=== PATIENT | male | born 1990 | race Caucasian/White ===

== ENCOUNTER 2024-11-27 11:33 | Emergency (ER) | payer OTHER, SELFPAY ==
[2024-11-27 11:42] VITALS: BP 144/106
[2024-11-27 12:07] LABS: % Basophils 0.3 % (0-2); % Eosinophils 3.1 % (0-6); % Immature Granulocytes 0.3 % (0-0.5); % Lymphocytes 16.7 % (20.5-51.1); % Monocytes 10.4 % (1.7-9.3); % Neutrophils 69.2 % (42.2-75.2); Absolute Eosinophils 0.4 10^3/uL (0-0.7); Absolute Lymphocytes 1.9 10^3/uL (1.2-3.4); Absolute Monocytes 1.2 10^3/uL (0.1-0.6); Hematocrit 44.4 % (39.0-52.0); Hemoglobin 15.5 g/dL (13.0-18.0); Mean Corp Hgb Conc. 34.9 g/dL (33.0-37.0); Mean Corpuscular Hgb 30.7 pg (27.0-31.0); Mean Corpuscular Volume 87.9 fL (80.0-94.0); Mean Platelet Volume 9.6 fL (7.4-10.4); Nucleated Red Blood Cells % 0 % (-); Platelet Count 256 10^3/uL (130-400); Red Blood Cell Count 5.05 10^6/uL (4.70-6.10); Red Cell Dist. Width 12.3 % (11.5-14.5); White Blood Cell Count 11.6 10^3/uL (4.8-10.8)
[2024-11-27 12:25] LABS: COVID-19 Antigen Negative (Negative)
[2024-11-27 12:43] LABS: Troponin I < 0.012 ng/ml
[2024-11-27 12:51] LABS: ALT (SGPT) 63 U/L (0-50); AST (SGOT) 36 U/L (17-59); Albumin 4.8 g/dl (3.5-5.0); Alkaline Phosphatase 74 U/L (38-126); Blood Urea Nitrogen 14 mg/dl (9-20); Calcium 9.8 mg/dl (8.4-10.2); Carbon Dioxide 26 mmol/L (22-30); Chloride 103 mmol/L (98-107); Glucose 88 mg/dl (70-99); Potassium 4.3 mmol/L (3.5-5.1); Sodium 138 mmol/L (135-145); Total Bilirubin 1.4 mg/dl (0.2-1.3); eGFR > 60.00
[2024-11-27 13:24] VITALS: BP 132/88
[2024-11-27 14:00] VITALS: BP 136/88
[2024-11-27 14:40] VITALS: BP 128/85
[2024-11-27 15:00] VITALS: BP 140/98
--- NOTE | 2024-11-27 15:29 | ED.GENMED ---
History of Present Illness
General
Chief Complaint: Fatigue
Source: patient
Exam Limitations: none
Time Seen by Provider: 11/27/24 14:19
Nursing documentation reviewed up to this point in time: agreed with
History of Present Illness
History of Present Illness:
Note:
CHIEF COMPLAINT(S)
Headache and dizziness.
HISTORY OF PRESENT ILLNESS
The patient is a 34-year-old male presenting with headache and dizziness. The symptoms began several days ago but have worsened since yesterday. Initially, the patient experienced a sensation of heaviness in the chest and breathing difficulties.
There was a transient episode of left foot numbness, which resolved after approximately one and a half hours. The headache is localized to the side of the head. The patient reports a sensation described as 'cloudy' and difficulty articulating
thoughts. There is no chest pain currently but a sore throat is noted, especially when swallowing. The patient denies any spinning sensation but experiences dizziness when sitting up. Aspirin provided short-term relief for the headache. The patient
notes a history of dental infections requiring antibiotic treatment in the past, but he is not currently on antibiotics. There is a tightness sensation in the jaw.
SOCIAL HISTORY
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
ALLERGIES
Denies any known medication allergies.
MEDICATIONS
The patient has taken aspirin for the headache.
REVIEW OF SYSTEMS
- Neurological: Headache, 'cloudy' feeling, difficulty in articulation.
- Sensory: Transient numbness in the left foot.
- Otorhinolaryngological: Sore throat, difficulty swallowing.
- Cardiovascular: Brief past sensation of chest heaviness.
PHYSICAL EXAM
Nursing notes reviewed and vital signs reviewed.
Physical Exam
General: no apparent distress, not acutely ill
Neck: supple. no meningeal signs. normal posterior pharynx
Heart: s1/s2 regular rate and rhythm, no murmur. equal radial
pulses.
HEENT: Pupils equal round reactive to light, EOMI, poor dentition, dental caries right lower molars
Lungs: no acute respiratory distress. clear bilaterally
Abdomen: normal bowel sounds. not tender. no CVAT
Neuro: alert and oriented. no focal neurological deficits cranial nerves II through XII intact
Skin: no rash
Psychiatric: well kept. interactive and cooperative
Extremities: no edema. no calf tenderness. negative homans. good distal pulses
PLAN
-
- Administer treatment for the headache considering possible migraine etiology.
- Prescribe antibiotics for a suspected dental infection.
- Arrange for dental follow-up to address oral health concerns.
DIFFERENTIAL DIAGNOSIS
The Differential Diagnosis includes, in no particular order and is not limited to:
1. Migraine headache
2. Tension-type headache
3. Sinusitis
4. Dental infection
5. Mononucleosis
6. Dehydration
7. Upper respiratory tract infection
8. Viral pharyngitis
9. Temporomandibular joint disorder
10. Neurological disorder (e.g., transient ischemic attack)
CARE-UPDATE
11/27/24 - 15:48
CT head results are normal. Mild acetosis noted. Dental care is seen impacting right lower molars. Patient reports feeling better and expresses the desire to be discharged. Mosicellin prescribed for the dental infection. No suspicion of intracranial
hemorrhage, TIA, pneumonia, sepsis, or Lyme disease. Oxycelin is being used to manage the dental infection. The patient has been instructed to follow up with both the dentist and primary care provider. Return precautions have been provided.
Disposition:
SUMMARY OF ENCOUNTER
The patient presented to the emergency department with headache and dizziness that began several days ago and worsened recently. Initial symptoms included chest heaviness and transient numbness in the left foot. The headache was also associated with
a cloudy feeling and difficulty articulating thoughts. A sore throat and jaw tightness were noted as well. The clinical approach involved ruling out serious neurological conditions, dental infections, and other causes like migraines and upper
respiratory infections. Patient declined treatment for his headache.
DISPOSITION
The patient was discharged home with instructions for follow-up care with their dentist and primary care provider.
PLAN
The plan included addressing the headache considering a possible migraine and prescribing antibiotics for the suspected dental infection.
MEDICATION RECONCILIATION
The patient was prescribed amoxicillin for the dental infection.
MEDICAL DECISION MAKING
1. Number & Complexity of Problems: The patients primary concerns were a headache and dizziness with a suspected underlying dental infection.
2. Data Reviewed: My independent review of labs and imaging reported normal head CT results. The diagnosis was supported by the absence of intracranial hemorrhage and normal vital signs.
3. Risk: Consideration of admission was made but outpatient management was deemed appropriate based on a reassuring work-up, symptom control, and patient�s stability.
PATHOLOGIES TO CONSIDER
Stroke, Transient Ischemic Attack, Subarachnoid Hemorrhage, Dental Abscess, Upper Respiratory Infection, Migraine.
Past History
Past History
ED Past Medical History: None
ED Past Surgical History: None
Social History
Tobacco: Former smoker
Alcohol: Occasional
Personal: Single
Living: with family
Employment: Employed
Family History
Family History: Other (Noncontributory)
Phy Exam
Physical Exam
Physical Exam:
.
Course
Orders/Labs/Results
Orders:
Orders
11/27/24 11:35
Electrocardiogram (*1) Urgent
Reason for Study: Chest Pain
EKG- Treatment ONCE
11/27/24 11:56
COVID-19 Antigen Urgent
Source: Nasal Swab
Complete Blood Count/With Diff Urgent
Comprehensive Metabolic Panel Urgent
Troponin I Urgent
Influenza A+B Rapid Molecular Urgent
MIYA Source: Nasal Swab
Specimen Description:
11/27/24 13:27
CT Head W/o Iv Contrast Urgent
Comment:
Reason For Exam: headache, dizziness
11/27/24 15:30
Rapid Strep Group A Urgent
MIYA Source: Throat/Pharynx
Specimen Description:
Date Specimen was Collected: 11/27/24
Time Specimen was Collected: 15:33
Amoxicillin [Amoxil] 500 mg PO NOW STA
Abnormal Lab Results
11/27/24
11:56
WBC 11.6 H 10^3/uL
(4.8-10.8)
Absolute Neuts (auto) 8.0 H 10^3/uL
(1.4-6.5)
Absolute Monos (auto) 1.2 H 10^3/uL
(0.1-0.6)
Lymphocytes % 16.7 L %
(20.5-51.1)
Monocytes % 10.4 H %
(1.7-9.3)
Total Bilirubin 1.4 H mg/dl
(0.2-1.3)
ALT 63 H U/L
(0-50)
11/27/24 11:56
11/27/24 11:56
Vital Signs
Initial and Last Documented VS:
Initial Vital Signs
Temp Pulse Resp BP Pulse Ox
98.0 F 101 16 144/106 97
11/27/24 11:42 11/27/24 11:42 11/27/24 11:42 11/27/24 11:42 11/27/24 11:42
Last Documented Vital Signs
Temp Pulse Resp BP Pulse Ox
98.0 F 93 16 140/98 98
11/27/24 11:42 11/27/24 15:30 11/27/24 15:30 11/27/24 15:00 11/27/24 15:30
*Pulse Oximetry
SaO2: 98
Oxygen Mode of Delivery: Room air
Patient hypoxic: no
*EKG
Interpreted by ED Provider?: Yes
EKG Intrepretation Date: 11/27/24
EKG Intrepretation Time: 11:40
Interpretation: normal
Comparison EKG: no comparison EKG present
Heart Rate: 81
Rate: normal
Rhythm: sinus
[place]: normal axis
Interval: normal interval and third degree heart block
QRS Pattern: normal QRS
Ischemia: no ischemia
*Critical Care Note
Total Time (30-74mins, 75-104mins- exclusive of procedures): Not Applicable
ED Attending Note
-
Portions of this chart may have been created with voice recognition software.� Occasional wrong word or��sound alike� substitutions may have occurred due to the inherent limitations of voice recognition software.
Discharge Plan
Departure
Patient Disposition: Home (Routine Discharge)
Date of Disposition: 11/27/24
Time of Disposition: 15:30
Patient with high blood pressure during this ER visit?: Yes
Condition: Good
Discharge Problem:
Headache, Dental infection
Instructions: Headache in adults - ED discharge instructions, Dental pain - ED discharge instructions, BLOOD PRESSURE
Prescriptions:
New
amoxicillin 500 mg capsule
500 mg PO TID Qty: 30 0RF
No Action
amoxicillin 500 MG capsule
500 mg PO TID Qty: 30 0RF
Referrals:
Sandra Slade MD [Family Provider, Family Practice] - Call in 1-3 days for appt
Activity Restrictions/Additional Instructions:
Follow up with dentist, and primary care. Return for any concerns.
Interventions
Interventions:
*Risk Screen - Suicide Last Done: 11/27/24 11:42
*General Assessment Last Done: 11/27/24 13:40
*Neglect/Abuse Screening Last Done: 11/27/24 11:42
*ED- Fall Risk Assessment Last Done: 11/27/24 13:40
*ED COVID-19 Vaccine History Last Done: 11/27/24 13:40
*Nursing Disposition Last Done: 11/27/24 15:46
Discharge Date and Time
Print Language: PUERTO RICAN
[2024-11-27] MEDS: AMOXIL 500 MG PO (15:43)
== END 2024-11-27 15:46 | disposition home or self-care (01) ==
LOC: EMR 11:33
PROVIDERS: Student in an Organized Health Care Education/Training Program; EMERGENCY PHYSICIAN Emergency Medicine; FAMILY PHYSICIAN Family Medicine
DX: K04.7 Periapical abscess without sinus (principal); R51.9 Headache, unspecified; Z87.891 Personal history of nicotine dependence; Z11.52 Encounter for screening for COVID-19
CPT/HCPCS: 99284; 70450; 80053; 84484; 85025; 87070; 87502; 87811; 87880; 93005